=== PATIENT | male | born 1955 | race Caucasian/White ===

== ENCOUNTER 2021-01-18 15:56 | Emergency (ER) | payer MEDICARE, OTHER ==
[~2021-01-18] VITALS: Ht 167.6 cm; Wt 74.8 kg
[2021-01-18 16:09] VITALS: BP 127/72
--- NOTE | 2021-01-18 16:15 | NUR ---
PT SENT TO ER LOBBY TO WAIT FOR AVAILABLE BED.
[2021-01-18] MEDS ORDERED: LIDOCAINE MPF 1% 5 ML ONE (17:33)
[2021-01-18] MEDS ORDERED: BACITRACIN OINT 500 UNITS/GM PKT TP ONE (17:35)
[2021-01-18] MEDS ORDERED: IBUP-2213 PO (17:50)
--- NOTE | 2021-01-18 17:54 | NUR ---
65/M BIB DAUGHTER WITH C/O LEFT HAND LACERATION AFTER CUTTING A COCONUT 1 HOUR PRIOR TO ARRIVAL TO ED. LACERATION NOTED TO PALM OF HAND, BLEEDING CONTROLLED. REPORTS NUMBNESS IN LEFT THUMB, PULSES AND SENSATION EQUAL BILATERALLY, PATIENT ABLE TO MOVE ALL DIGITS APPROPRIATELY. REPORTING 10/10 THROBBING PAIN THAT WORSENS WITH MOVEMENT. DENIES TAKING ANYTHING FOR PAIN PRIOR TO ARRIVAL.
--- NOTE | 2021-01-18 18:02 | NUR ---
Patient discharged with v/s stable. Written and verbal after care instructions given and explained. Patient verbalized understanding. with steady gait. All questions addressed prior to discharge. Advised to follow up with PMD.
== END 2021-01-18 18:02 | disposition home or self-care (01) ==
LOC: MED 15:56
DX: S61.412A Laceration without foreign body of left hand, initial encounter (principal); Z79.899 Other long term (current) drug therapy; W26.0XXA Contact with knife, initial encounter; Y93.89 Activity, other specified; Y92.89 Other specified places as the place of occurrence of the external cause; Y99.8 Other external cause status
CPT/HCPCS: 12001; 90471; 90715; 99283; J2001

== ENCOUNTER 2023-08-23 11:14 | Emergency (ER) | payer BC, MEDICARE ==
[~2023-08-23] VITALS: Ht 167.6 cm; Wt 72.6 kg
[~2023-08-23 11:14] MED LIST: IBUP-2213 PO
[2023-08-23 11:43] VITALS: BP 131/74; PULSE 73; RESP 18; TEMP 97.9; O2SAT 98
[2023-08-23] MEDS: FLUORESCEIN OPTH STRIP 1 MG OP ONE (14:35)
[2023-08-23] MEDS: TETRACAINE HCL/PF 0.5% OPTH 4 ML BTL OP ONE (14:36)
[2023-08-23] MEDS ORDERED: TOMOMETER 1 DEV DEV MC ONE (14:39)
[2023-08-23 14:59] VITALS: BP 131/74; PULSE 73; RESP 18; TEMP 97.9; O2SAT 98
== END 2023-08-23 15:11 | disposition home or self-care (01) ==
LOC: MED 11:14
DX: H11.32 Conjunctival hemorrhage, left eye (principal); Z79.899 Other long term (current) drug therapy
CPT/HCPCS: 99283